=== PATIENT | female | born 1990 | race Caucasian/White ===

== ENCOUNTER 2021-09-09 19:21 | Emergency (ER) | payer OTHER ==
[2021-09-09 20:01] VITALS: BP 110/67; PULSE 74; TEMP 98.2; BMI 25.0
[2021-09-09 21:45] LABS: BASO % 0.4 % (0-2.0); EOS % 0.8 % (0-4.5); HEMATOCRIT 34.1 % (32.4-45.2); HEMOGLOBIN 11.2 GM/dL (10.7-15.3); LYMPH % 25.4 % (8-40); MCH 26.7 pg (25.7-33.7); MCHC 32.8 g/dl (32.0-36.0); MEAN CELL VOLUME 81.6 fl (80-96); MEAN PLT VOLUME 6.9 fl (7.5-11.1); MONO % 7.7 % (3.8-10.2); NEUT % 65.7 % (42.8-82.8); PLATELET COUNT 282 10^3/uL (134-434); RBC 4.18 M/mm3 (3.60-5.2); WHITE BLOOD COUNT 5.9 K/mm3 (4.0-10.0)
[2021-09-09 21:47] LABS: EPI CELLS 14 /uL (0-25.1); HYALINE CASTS 0 /uL (0-3.1); URINE APPEARANCE CLEAR; URINE BACTERIA 115 /uL (0-1359); URINE BILIRUBIN NEGATIVE (NEGATIVE); URINE COLOR YELLOW; URINE GLUCOSE (UA) NEGATIVE (NEGATIVE); URINE KETONE NEGATIVE (NEGATIVE); URINE LEUK ESTERASE TRACE (NEGATIVE); URINE NITRITE NEGATIVE (NEGATIVE); URINE PROTEIN NEGATIVE (NEGATIVE); URINE RBC 4 /uL (0-23.9); URINE UROBILINOGEN 0.2 mg/dL (0.2-1.0); URINE WBC 9 /uL (0-25.8)
[2021-09-09 22:09] LABS: CALCIUM 8.7 mg/dL (8.5-10.1)
[2021-09-09 22:10] LABS: ALBUMIN 3.9 g/dl (3.4-5.0); BLOOD UREA NITROGEN 13.3 mg/dL (7-18)
[2021-09-09 22:13] LABS: CREATININE 0.7 mg/dL (0.55-1.3)
[2021-09-09 22:15] LABS: BILIRUBIN,TOTAL 0.2 mg/dL (0.2-1); TOT PROT 7.3 g/dl (6.4-8.2)
== END 2021-09-10 00:20 | disposition home or self-care (01) ==
LOC: JER 19:21
DX: O26.851 Spotting complicating pregnancy, first trimester (principal); O20.0 Threatened abortion; N77.1 Vaginitis, vulvitis and vulvovaginitis in diseases classified elsewhere; Z3A.01 Less than 8 weeks gestation of pregnancy
CPT/HCPCS: 36415; 76817-TC; 80053; 81003; 84702; 85025; 86850; 86900; 86901; 87086; 87186; 87491; 87591; 99284-25

== ENCOUNTER 2021-09-11 07:41 | Emergency (ER) | payer OTHER ==
[2021-09-11 07:57] VITALS: TEMP 98.4; BMI 25.0
[2021-09-11 12:17] VITALS: BP 92/58; PULSE 85
== END 2021-09-11 12:33 | disposition home or self-care (01) ==
LOC: JER 07:41 → JERFT 07:41
DX: O20.8 Other hemorrhage in early pregnancy (principal); Z3A.01 Less than 8 weeks gestation of pregnancy
CPT/HCPCS: 36415; 76830-TC; 84702; 99284-25

== ENCOUNTER 2021-09-23 17:41 | Emergency (ER) | payer OTHER ==
[2021-09-23 18:16] VITALS: BP 121/78; PULSE 71; RESP 17; TEMP 97.8; BMI 25.0
[2021-09-23] MEDS ORDERED: ACETAMINOPHEN 500 MG TABLET (FP) PO ONE (19:02)
[2021-09-23] MEDS ORDERED: ACETAMINOPHEN 500 MG TABLET (FP) ONE (19:09)
[2021-09-23 19:37] LABS: BASO % 0.3 % (0-2.0); EOS % 0.3 % (0-4.5); HEMOGLOBIN 11.9 GM/dL (10.7-15.3); LYMPH % 12.4 % (8-40); MCH 26.8 pg (25.7-33.7); MEAN CELL VOLUME 81.2 fl (80-96); MEAN PLT VOLUME 7.3 fl (7.5-11.1); MONO % 5.4 % (3.8-10.2); NEUT % 81.6 % (42.8-82.8); PLATELET COUNT 298 10^3/uL (134-434); RBC 4.43 M/mm3 (3.60-5.2); RDW 15.2 % (11.6-15.6); WHITE BLOOD COUNT 9.3 K/mm3 (4.0-10.0)
[2021-09-23 20:06] LABS: BLOOD UREA NITROGEN 14.9 mg/dL (7-18); CALCIUM 8.8 mg/dL (8.5-10.1)
[2021-09-23 20:09] LABS: CREATININE 0.7 mg/dL (0.55-1.3)
== END 2021-09-23 22:08 | disposition home or self-care (01) ==
LOC: JER 17:41
DX: O02.1 Missed abortion (principal)
CPT/HCPCS: 36415; 76817-TC; 80048; 84702; 85025; 86850; 86900; 86901; 99284-25

== ENCOUNTER 2023-10-06 08:49 | Emergency (ER) | payer OTHER ==
[2023-10-06 09:05] VITALS: RESP 20; TEMP 98.9; BMI 30.2
[2023-10-06 10:17] LABS: BASO % 0.5 % (0-2.0); EOS % 0.9 % (0-4.5); HEMATOCRIT 33.4 % (32.4-45.2); HEMOGLOBIN 10.7 GM/dL (10.7-15.3); LYMPH % 24.5 % (8-40); MCH 23.5 pg (25.7-33.7); MCHC 32.1 g/dl (32.0-36.0); MEAN CELL VOLUME 73.1 fl (80-96); MEAN PLT VOLUME 7.2 fl (7.5-11.1); MONO % 7.1 % (3.8-10.2); PLATELET COUNT 368 10^3/uL (134-434); RBC 4.57 M/mm3 (3.60-5.2); RDW 17.4 % (11.6-15.6); WHITE BLOOD COUNT 5.5 K/mm3 (4.0-10.0)
[2023-10-06 10:19] LABS: URINE APPEARANCE CLEAR; URINE BILIRUBIN NEGATIVE (NEGATIVE); URINE COLOR YELLOW; URINE GLUCOSE (UA) NEGATIVE (NEGATIVE); URINE KETONE NEGATIVE (NEGATIVE); URINE LEUK ESTERASE NEGATIVE (NEGATIVE); URINE NITRITE NEGATIVE (NEGATIVE); URINE PROTEIN NEGATIVE (NEGATIVE); URINE UROBILINOGEN 0.2 mg/dL (0.2-1.0)
[2023-10-06 10:59] LABS: CALCIUM 9.1 mg/dL (8.5-10.1)
[2023-10-06 11:00] LABS: ALBUMIN 3.7 g/dl (3.4-5.0); BLOOD UREA NITROGEN 13.4 mg/dL (7-18)
[2023-10-06 11:03] LABS: CREATININE 0.8 mg/dL (0.55-1.3)
[2023-10-06 11:05] LABS: BILIRUBIN,TOTAL 0.2 mg/dL (0.2-1); TOT PROT 7.5 g/dl (6.4-8.2)
[2023-10-06 14:58] VITALS: BP 118/59; PULSE 75
== END 2023-10-06 14:58 | disposition home or self-care (01) ==
LOC: JER 08:49
DX: O20.9 Hemorrhage in early pregnancy, unspecified (principal); Z3A.01 Less than 8 weeks gestation of pregnancy
CPT/HCPCS: 36415; 76817-TC; 80053; 81003; 84702; 85025; 86850; 86900; 86901; 87070; 87086; 87205; 99284-25

== ENCOUNTER 2023-10-13 08:45 | Emergency (ER) | payer OTHER ==
[2023-10-13 08:56] VITALS: BP 117/70; PULSE 74; RESP 18; TEMP 98.7; BMI 29.6
[2023-10-13 10:19] LABS: BASO % 0.7 % (0-2.0); HEMATOCRIT 32.8 % (32.4-45.2); HEMOGLOBIN 10.5 GM/dL (10.7-15.3); LYMPH % 28.6 % (8-40); MCH 23.3 pg (25.7-33.7); MCHC 32.1 g/dl (32.0-36.0); MEAN CELL VOLUME 72.5 fl (80-96); MEAN PLT VOLUME 7.3 fl (7.5-11.1); MONO % 7.1 % (3.8-10.2); NEUT % 62.6 % (42.8-82.8); PLATELET COUNT 373 10^3/uL (134-434); RBC 4.52 M/mm3 (3.60-5.2); WHITE BLOOD COUNT 5.8 K/mm3 (4.0-10.0)
[2023-10-13 10:38] LABS: POTASSIUM 3.9 mmol/L (3.5-5.1)
[2023-10-13 10:45] LABS: CREATININE 0.7 mg/dL (0.55-1.3)
[2023-10-13 10:46] LABS: BILIRUBIN,TOTAL 0.2 mg/dL (0.2-1); TOT PROT 7.3 g/dl (6.4-8.2)
[2023-10-13 11:18] LABS: ALBUMIN 3.8 g/dl (3.4-5.0); BLOOD UREA NITROGEN 8.4 mg/dL (7-18); CALCIUM 9.4 mg/dL (8.5-10.1)
[2023-10-13 12:01] LABS: EPI CELLS 22 /uL (0-25.1); HYALINE CASTS 0 /uL (0-3.1); PH,URINE 6.5 (5.0-8.0); URINE APPEARANCE CLEAR; URINE BACTERIA 726 /uL (0-1359); URINE BILIRUBIN NEGATIVE (NEGATIVE); URINE COLOR YELLOW; URINE GLUCOSE (UA) NEGATIVE (NEGATIVE); URINE KETONE NEGATIVE (NEGATIVE); URINE LEUK ESTERASE TRACE (NEGATIVE); URINE NITRITE NEGATIVE (NEGATIVE); URINE PROTEIN NEGATIVE (NEGATIVE); URINE RBC 24 /uL (0-23.9); URINE UROBILINOGEN 0.2 mg/dL (0.2-1.0); URINE WBC 19 /uL (0-25.8)
== END 2023-10-13 14:19 | disposition home or self-care (01) ==
LOC: JERFT 08:45
DX: O20.0 Threatened abortion (principal); Z3A.00 Weeks of gestation of pregnancy not specified
CPT/HCPCS: 36415; 76817-TC; 80053; 81003; 84702; 85025; 86850; 86900; 86901; 87086; 99284-25

== ENCOUNTER 2023-10-15 08:17 | Emergency (ER) | payer OTHER ==
[2023-10-15 08:23] VITALS: BP 114/74; PULSE 76; RESP 16; TEMP 98.4; BMI 27.9
== END 2023-10-15 10:31 | disposition home or self-care (01) ==
LOC: JERFT 08:17
DX: O03.9 Complete or unspecified spontaneous abortion without complication (principal)
CPT/HCPCS: 36415; 84702; 99283-25